=== PATIENT | female | born 1960 | race Caucasian/White ===

== ENCOUNTER 2017-03-19 14:35 | Emergency (ER) | payer OTHER ==
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
--- NOTE | 2017-03-19 17:48 | ED ORDER SUMMARY ---
..... Patient: KUMAR PAUL OrderSheet [facility] VisitID: [id number] [place] [address] 56y, F Registration Date/Time: 03/19/2017 ORDER SHEET Weight: 100.2 kg (stated) Allergies: Penicillins GENERAL ORDERS: HIV I and II Urgent (16:05 03/19/2017 LWhalen R.N. verbal order read back to Meng TERESA) (Ack 16:11 Raa ER Tech1) (17:02 ALawrswabr ER Tech1) HepBSAB Urgent (16:05 03/19/2017 LWhalen R.N. verbal order read back to Meng TERESA) (Ack 16:11 Raa ER Tech1) (17:02 ALawrswabr ER Tech1) HepBSAG Urgent (16:05 03/19/2017 LWhalen R.N. verbal order read back to Meng TERESA) (Ack 16:11 Raa ER Tech1) (17:02 ALawrswabr ER Tech1) HepCAB Urgent (16:05 03/19/2017 LWhalen R.N. verbal order read back to Meng TERESA) (Ack 16:11 Lambert ER Tech1) (17:02 ALawrswabr ER Tech1) MEDICATION ORDERS: Hepatitis B Immune Globulin IM 3-5 mL (NOW) (16:02 03/19/2017 LWhalen R.N. verbal order read back to Meng TERESA) (Cancelled: Patient Oligftt20:57 LWhalen R.N.) Tdap IM 0.5 mL (NOW, per protocol) (16:04 03/19/2017 LWhalen R.N. verbal order read back to Meng TERESA) (17:05 LWhalen R.N.) Hepatitis B Vaccine IM 5 mcg (NOW) (16:04 03/19/2017 LWhalen R.N. verbal order read back to Meng TERESA) (Cancelled: Patient Kooopjl03:57 LWhalen R.N.) IV FLUIDS: ORDER SHEET NOTES: [Electronically signed by Akilah Quick R.N. (18:20 03/19/2017)] [Electronically signed by Bhupinder Amador MD (10:11 03/22/2017)] [Electronically locked/signed by Akilah Quick R.N. (18:20 03/19/2017)]
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
--- NOTE | 2017-03-19 17:48 | ED ORDER SUMMARY ---
..... Patient: KUMAR PAUL OrderSheet [facility] VisitID: [id number] [place] [address] 56y, F Registration Date/Time: 03/19/2017 ORDER SHEET Weight: 100.2 kg (stated) Allergies: Penicillins GENERAL ORDERS: HIV I and II Urgent (16:05 03/19/2017 LWhalen R.N. verbal order read back to Meng TERESA) (Ack 16:11 Raa ER Tech1) (17:02 [employer]Eth[employer] ER Tech1) HepBSAB Urgent (16:05 03/19/2017 LWhalen R.N. verbal order read back to Meng TERESA) (Ack 16:11 Raa ER Tech1) (17:02 [employer] ER Tech1) HepBSAG Urgent (16:05 03/19/2017 LWhalen R.N. verbal order read back to Meng TERESA) (Ack 16:11 Raa ER Tech1) (17:02 [employer] ER Tech1) HepCAB Urgent (16:05 03/19/2017 LWhalen R.N. verbal order read back to Meng TERESA) (Ack 16:11 Lambert ER Tech1) (17:02 [employer] ER Tech1) MEDICATION ORDERS: Hepatitis B Immune Globulin IM 3-5 mL (NOW) (16:02 03/19/2017 LWhalen R.N. verbal order read back to Meng TERESA) (Cancelled: Patient Tjzcpml66:57 LWhalen R.N.) Tdap IM 0.5 mL (NOW, per protocol) (16:04 03/19/2017 LWhalen R.N. verbal order read back to Meng TERESA) (17:05 LWhalen R.N.) Hepatitis B Vaccine IM 5 mcg (NOW) (16:04 03/19/2017 LWhalen R.N. verbal order read back to Meng TERESA) (Cancelled: Patient Drplyre91:57 LWhalen R.N.) IV FLUIDS: ORDER SHEET NOTES: [Electronically signed by Akilah Quick R.N. (18:20 03/19/2017)] [Electronically signed by Bhupinder Amador MD (10:11 03/22/2017)] [Electronically locked/signed by Akilah Quick R.N. (18:20 03/19/2017)]
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
--- NOTE | 2017-03-22 10:11 | ED MED RECONCILIATION SUMMARY ---
Patient: KUMAR PAUL Medication Reconciliation Report [facility] VisitID: [id number] [address] [place] [address] 56y, F Registration Date/Time: 03/19/2017 Weight: 100.2 kg Height/Length: 67 in. BMI: 34.6 ALLERGIES: Penicillins The patient's Home Medications are listed below: THE FOLLOWING MEDICATIONS NEED TO BE RECONCILED: HydrOXYzine HCl Oral Magnesium Oral Melatonin ER Oral SEROquel Oral TraZODone HCl Oral The source(s) of the original Home Medication information: Not obtained. The following Medications were given to the patient in the Emergency Department: TDAP [IM] IM 0.5 mL, administered: 03/19/2017 5:05:00 PM The following Medications were prescribed to the patient: None.
--- NOTE | 2017-03-22 10:11 | ED MED RECONCILIATION SUMMARY ---
Patient: KUMAR PAUL Medication Reconciliation Report [facility] VisitID: [id number] [address] [place] [address] 56y, F Registration Date/Time: 03/19/2017 Weight: 100.2 kg Height/Length: 67 in. BMI: 34.6 ALLERGIES: Penicillins The patient's Home Medications are listed below: THE FOLLOWING MEDICATIONS NEED TO BE RECONCILED: HydrOXYzine HCl Oral Magnesium Oral Melatonin ER Oral SEROquel Oral TraZODone HCl Oral The source(s) of the original Home Medication information: Not obtained. The following Medications were given to the patient in the Emergency Department: TDAP [IM] IM 0.5 mL, administered: 03/19/2017 5:05:00 PM The following Medications were prescribed to the patient: None.
--- NOTE | 2017-03-22 10:11 | ED MAR SUMMARY ---
..... Medication Administration Record [facility] [address] [place] [address] Patient: KUMAR PAUL Visit ID: [id number] 56y, F Weight: 100.2 kg Height/Length: 67 in BMI: 34.6 ALLERGIES: Penicillins Given 17:05 03/19/2017 Akilah Quick RMercedezNMercedez Medication Administered: TDAP [IM], Dose: 0.5 mL IM. Medication Ordered: Tdap IM 0.5 mL (NOW, per protocol).
--- NOTE | 2017-03-22 10:11 | ED MAR SUMMARY ---
..... Medication Administration Record [facility] [address] [place] [address] Patient: KUMAR PAUL Visit ID: [id number] 56y, F Weight: 100.2 kg Height/Length: 67 in BMI: 34.6 ALLERGIES: Penicillins Given 17:05 03/19/2017 Akilah Quick RMercedezNMercedez Medication Administered: TDAP [IM], Dose: 0.5 mL IM. Medication Ordered: Tdap IM 0.5 mL (NOW, per protocol).
--- NOTE | 2017-03-22 10:11 | ED DISCHARGE INSTRUCTIONS ---
Patient: KUMAR PAUL General Instructions [facility] VisitID: [id number] [place] [address] 56y, F Registration Date/Time: 03/19/2017 Needlestick to the left forearm. INSTRUCTIONS (THIS IS A LOW RISK BUT NOT A NO RISK EXPOSURE. THERE IS RISK AND BENEFIT TO ACTION AND NON ACTION. HIV RISK IS 0.3% WITH A HIV + BLOODY NEEDLE HIV PROPYLAXIS MUCH LESS EFFECTIVE AFTER A FEW HOURS. RISK PROBABLY NOT WORTH THE BENEFIT. HEPATITIS B - PROPHYLAXIS - recommended TETANUS - recommened. SEE YOUR DR IN 2 WEEKS.). Follow-up: Follow up with your doctor in ten days. Understanding of the discharge instructions verbalized by patient. ADDITIONAL INFORMATION Body Fluid Exposure(Non-Occupational) There are two important illnesses that can be transmitted through body fluid exposure: HIV Hepatitis (types B, C and D) Most persons exposed one timeto the body fluid of a person infected with HIV or hepatitis do not get the virus. However, exposure must be taken very seriously. Both HIV and hepatitis virus infection can lead to chronic illness and . The risk of infection depends on the type of exposure: Type of exposure to + HIV source Risk Needle stick 3 out of 1000 exposures Needle sharing with drug injection 7 out of 1000 exposures Anal, vaginal, oral intercourse less than 1 out of 1000 exposures If you have notbeen immunized against Hepatitis B, the risk of becoming infected with Hepatitis B and C after a single exposure is much higher than with HIV. For needle stick or non-sexual mucous membrane exposures the risk is 6-24% (6-24 out of 100 exposures) for Hepatitis B. The risk of becoming infected after similar exposure to someone with Hepatitis C is 1-10% (1-10 out of 100 exposures). If you are in a sexual relationship, discuss your exposure and its risks with your partner. Consider abstaining from sex or using condoms and avoiding until test results of the person who exposed you is negative, or your follow-up testing is performed. Do not donate blood, tissue or semen. If you are a woman who is breast feeding, discuss the risks to your with your doctor, to decide if you want to stop. Testing: Initial testing for HIV and hepatitis status will be performed on you today.If the HIV and hepatitis status of the person you were exposed to is not known, efforts should be made to have that person tested.If that person is positive or unknown, and your results are negative, you will need to have more blood tests at a later time to find out if infection has occurred. It can take up to eight weeks for blood tests to turn positive for hepatitis.If HIV infection has occurred, the test usually becomes positive by three months after exposure, but a positive result could be delayed up to six months after exposure. Therefore, repeat HIV testing may be done in 6 and 12 weeks, and again at 6 months after exposure.If tests are negative for hepatitis and HIV on final follow-up testing, you can assume that you were not infected as a result of this exposure. Post-Exposure Prophylaxis (Pep): To protect you from Hepatitis B, treatment will depend on the status of the person who exposed you, and whether you have been previously vaccinated.If you have not been previously vaccinated, you can receive the first dose of the vaccination series today. There is no preventive treatment or vaccine for hepatitis C or D. Based on how recently the exposure occurred, the type of exposure, and the risk of HIV in the person who you were exposed to, preventive treatment with antiviral medicine may be advised. Treatment consists of two or three oral medicines taken 2-3 times a day for four weeks. It is recommended to start the treatment as soon as possible after the exposure. Since treatment may be started before test results are known, it can be stopped if the source patient test results are negative. Facts You Need To Know Before Making A Treatment Decision: There is only limited information about the effectiveness of drugs used for PEP and their toxicity in persons without HIV infection. Although the short-term toxicity of anti-viral drugs is usually limited, serious adverse events have occurred. Be sure you understand the risk of transmission of disease and the risk/benefit of treatment before making your decision. If you are not sure, ask for more information. You may refuse or stop PEP treatment at any time. 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
== END 2017-03-19 18:00 | disposition home or self-care (01) ==
LOC: ED SRH 14:35
DX: S51.832A Puncture wound without foreign body of left forearm, initial encounter (principal); W46.0XXA Contact with hypodermic needle, initial encounter; Y93.89 Activity, other specified; Y92.89 Other specified places as the place of occurrence of the external cause; Y99.8 Other external cause status; Z23 Encounter for immunization; Z79.899 Other long term (current) drug therapy; Z88.0 Allergy status to penicillin
CPT/HCPCS: 90073; 90074; 90075; 90077; 90078; 90364; 92863; 99777